=== PATIENT | male | born 1995 | race American Indian/Alaskan Native ===

== ENCOUNTER 2017-08-25 11:28 | Day surgery (SDC) | payer OTHER ==
[2017-08-25] MEDS ORDERED: ZOFRAN IV ONE (12:06)
[2017-08-25] MEDS ORDERED: NACL 0.9% 1000 ML 1,000 ML IV ONE (12:06)
[2017-08-25] MEDS ORDERED: MORPHINE IV ONE (12:06)
[2017-08-25] MEDS ORDERED: ZOFRAN ONE ×2 (12:08→14:37)
[2017-08-25] MEDS ORDERED: MORPHINE ONE (12:09)
--- NOTE | 2017-08-25 12:11 | Emergency Department Report ---
ED Male HPI - General Chief complaint: Urogenital-Male Stated complaint: TESTICLE SWOLLEN Time Seen by Provider: 08/25/17 12:02 Source: patient Mode of arrival: Ambulatory Limitations: No Limitations - History of Present Illness Initial comments: Patient is 21 years old male presented to the ER with left testicular pain that started all of a sudden after he went to the bathroom this morning around 8:00. Patient stated that his pain is 10 out of 10. Denied any recent trauma. Patient denied any penile discharge, no fever no nausea no vomiting. MD Complaint: testicle pain -: Sudden Location: left testicle Severity: severe Severity scale (0 -10): 10 Quality: sharp Consistency: constant Improves with: none Worsens with: movement denies: discharge, swelling, mass, rash, urinary retention, blood in urine, dysuria, fever, nausea/vomiting, incontinence - Related Data Home Medications Medication Instructions Recorded Confirmed Last Taken No Known Home Medications [No 07/29/16 07/29/16 Unknown Reported Home Medications] Allergies Allergy/AdvReac Type Severity Reaction Status Date / Time No Known Allergies Allergy Unverified 07/02/16 09:54 ED Review of Systems ROS: Stated complaint: TESTICLE SWOLLEN Other details as noted in HPI Comment: All other systems reviewed and negative Constitutional: denies: chills, fever Respiratory: denies: cough, shortness of breath, SOB with exertion Cardiovascular: denies: chest pain, palpitations, dyspnea on exertion Gastrointestinal: denies: abdominal pain, nausea, vomiting, diarrhea, constipation, hematemesis, hematochezia Genitourinary: denies: urgency Neurological: denies: headache, numbness, paresthesias ED Past Medical Hx - Past Medical History Previous Medical History?: No - Social History Smoking Status: Current Every Day Smoker Substance Use Type: Marijuana - Medications Home Medications: Home Medications Medication Instructions Recorded Confirmed Last Taken Type No Known Home Medications [No 07/29/16 07/29/16 Unknown History Reported Home Medications] ED Physical Exam - General Limitations: No Limitations General appearance: in distress - Head Head exam: Present: atraumatic, normocephalic - Eye Eye exam: Present: normal appearance - ENT ENT exam: Present: normal exam - Neck Neck exam: Present: normal inspection - Respiratory Respiratory exam: Present: normal lung sounds bilaterally - Cardiovascular Cardiovascular Exam: Present: regular rate, normal rhythm, normal heart sounds - GI/Abdominal GI/Abdominal exam: Present: soft, normal bowel sounds. Absent: distended, tenderness, guarding, rebound, rigid, organomegaly, mass, bruit, pulsatile mass , hernia - exam: Present: testicular tenderness (left side), scrotal swelling, circumcision. Absent: urethral discharge External exam: Present: swelling. Absent: erythema, lesions, lacerations, ecchymosis, bleeding - Extremities Exam Extremities exam: Present: normal inspection - Back Exam Back exam: Present: normal inspection. Absent: CVA tenderness (R), CVA tenderness (L) - Neurological Exam Neurological exam: Present: alert, oriented X3, CN II-XII intact, normal gait - Skin Skin exam: Present: warm, intact, normal color. Absent: cyanosis ED Course Vital Signs 08/25/17 11:37 Temperature 97.6 F Pulse Rate 80 Respiratory 26 H Rate Blood Pressure 134/98 O2 Sat by Pulse 97 Oximetry ED Medical Decision Making - Lab Data Result diagrams: 08/25/17 12:09 08/25/17 12:09 - Radiology Data Radiology results: report reviewed Referring Physician: VIVIENNE MCRAE Patient Name: SOURAV GOMEZ Date of : 1995 Sex: Male Report Date: 2017-08-25 Report Status: Finalized Findings [facility] [address] [place] [address] Ultrasound Report Signed Patient: SOURAV GOMEZ MR#: [id number] : 1995 Acct:[id number] Age/Sex: 21 / M ADM Date: 08/25/17 Loc: ED Attending Dr: Ordering Physician: VIVIENNE MCRAE Date of Service: 08/25/17 Procedure(s): US testicular doppler comp Accession Number(s): [id number] cc: VIVIENNE MCRAE ULTRASOUND TESTICULAR DOPPLER COMPLETE History: Severe scrotal pain. Technique: Trans-scrotal ultrasound with spectral doppler interrogation. Findings: The right testicle measures 3.5 x 2.7 x 2.9 cm. The left testicle measures 4.9 x 3.0 x 2.6 cm. There is no evidence for testicular cyst or mass. Both testicles are slightly heterogeneous. No calcifications. Spectral Doppler interrogation demonstrates normal arterial flow to the right testicle. There appears to be diminished flow to the left testicle on spectral Doppler imaging. There is better flow to the periphery of the left testicle than the central portions. The etiology of this is unclear. This may represent intermittent torsion? The epididymides are within normal limits. Small left hydrocele is noted. IMPRESSION: Arterial flow is identified to both testicles, however, flow appears to be diminished to the left testicle on spectral Doppler interrogation. Intermittent left testicular torsion? Please correlate with the patient's history. Small left hydrocele. Transcribed By: TTR Dictated By: IGNACIO BUTLER JR, MD Electronically Authenticated By: IGNACIO BUTLER JR, MD Signed Date/Time: 08/25/171313 DD/ 10 TD/TT: 08/25/171313 - Medical Decision Making Discussed with Dr. Patel from urology, he stated that he wanted patient nothing by mouth and he is taking the patient to the OR. Critical care attestation.: If time is entered above; I have spent that time in minutes in the direct care of this critically ill patient, excluding procedure time. ED Disposition Clinical Impression: Testicular torsion Disposition: DC-09 OP ADMIT IP TO THIS HOSP Is pt being admited?: Yes Condition: Stable
[2017-08-25 12:27] LABS: Basophils % (Auto) 0.5 % (0.0-1.8); Eosinophils % (Auto) 1.4 % (0.0-4.3); Hematocrit 42.4 % (35.5-45.6); Mean Corpuscular HGB Conc 33 % (32-34); Mean Corpuscular Hemoglobin 29 pg (28-32); Mean Corpuscular Volume 89 fl (84-94); Platelet Count 215 K/mm3 (140-440); Red Blood Count 4.78 M/mm3 (3.65-5.03); Red Cell Distribution Width 13.8 % (13.2-15.2); White Blood Count 6.6 K/mm3 (4.5-11.0)
[2017-08-25 12:42] LABS: Anion Gap 20 mmol/L; BUN/Creatinine Ratio 15; Blood Urea Nitrogen 12 mg/dL (9-20); Calcium 8.3 mg/dL (8.4-10.2); Carbon Dioxide 22 mmol/L (22-30); Chloride 102.8 mmol/L (98-107); Glucose 137 mg/dL (75-100); Potassium 3.6 mmol/L (3.6-5.0); Sodium 141 mmol/L (137-145)
--- NOTE | 2017-08-25 13:19 | Ultrasound Report ---
ULTRASOUND TESTICULAR DOPPLER COMPLETE History: Severe scrotal pain. Technique: Trans-scrotal ultrasound with spectral doppler interrogation. Findings: The right testicle measures 3.5 x 2.7 x 2.9 cm. The left testicle measures 4.9 x 3.0 x 2.6 cm. There is no evidence for testicular cyst or mass. Both testicles are slightly heterogeneous. No calcifications. Spectral Doppler interrogation demonstrates normal arterial flow to the right testicle. There appears to be diminished flow to the left testicle on spectral Doppler imaging. There is better flow to the periphery of the left testicle than the central portions. The etiology of this is unclear. This may represent intermittent torsion? The epididymides are within normal limits. Small left hydrocele is noted. IMPRESSION: Arterial flow is identified to both testicles, however, flow appears to be diminished to the left testicle on spectral Doppler interrogation. Intermittent left testicular torsion? Please correlate with the patient's history. Small left hydrocele.
[2017-08-25] MEDS ORDERED: DECADRON ONE (14:37)
[2017-08-25] MEDS ORDERED: QUELICIN ONE ×2 (14:37)
[2017-08-25] MEDS ORDERED: ZEMURON IV ONE (14:37)
[2017-08-25] MEDS ORDERED: SUBLIMAZE ONE (14:37)
[2017-08-25] MEDS ORDERED: DIPRIVAN 10 MG/ML IV ONE (14:37)
[2017-08-25] MEDS ORDERED: NEOSTIGMINE ONE (14:37)
[2017-08-25] MEDS ORDERED: ROBINUL ONE ×2 (14:37)
[2017-08-25] MEDS ORDERED: XYLOCAINE MPF 2% ONE (14:38)
--- NOTE | 2017-08-25 14:43 | Anesthesia Consultation ---
Anesthesia Consult and Med Hx Date of service: 08/25/17 - Airway Anesthetic Teeth Evaluation: Good ROM Head & Neck: Adequate Mental/Hyoid Distance: Adequate Mallampati Class: Class I Intubation Access Assessment: Good - Pulmonary Exam CTA: Yes - Cardiac Exam Cardiac Exam: RRR - Pre-Operative Health Status ASA Pre-Surgery Classification: ASA1, Emergency Proposed Anesthetic Plan: General - Other Systems Hx Obesity: Yes - Additional Comments Anesthesia Medical History Comments: healthy, no meds
--- NOTE | 2017-08-25 14:44 | Anesthesia Day of Surgery ---
Anesthesia Day of Surgery - Day of Surgery Patient Examined: Yes Patient H&P Reviewed: Yes Patient is NPO: Yes
[2017-08-25] MEDS ORDERED: NORCO 5/325 PO PRN (14:45)
[2017-08-25] MEDS ORDERED: MORPHINE IV PRN (14:45)
[2017-08-25] MEDS ORDERED: ZOFRAN IV PRN (14:45)
[2017-08-25] MEDS ORDERED: LACTATED RINGERS 1,000 ML IV SCH (15:00)
[2017-08-25] MEDS ORDERED: NEO SYNEPHRINE/NS Syringe(OR USE) IV ONE (15:00)
[2017-08-25] MEDS ORDERED: PEPCID IV NR (15:00)
[2017-08-25] MEDS ORDERED: ANCEF/STERILE WATER 2 GM/20 ML IV NR (15:00)
[2017-08-25] MEDS ORDERED: VERSED ONE (15:02)
[2017-08-25] MEDS ORDERED: DILAUDID ONE (15:50)
[2017-08-25] MEDS ORDERED: NACL 0.9% IR ONE (16:00)
[2017-08-25] MEDS ORDERED: TORADOL ONE (16:05)
--- NOTE | 2017-08-25 16:12 | Short Stay Summary ---
Short Stay Documentation Date of service: 08/25/17 Narrative H&P: Patient is 21 years old male presented to the ER with left testicular pain that started all of a sudden after he went to the bathroom this morning around 8:00. Patient stated that his pain is 10 out of 10------left testes. Denied any recent trauma. Patient denied any penile discharge, no fever no nausea no vomiting. - History Past Medical History: No medical history Past Surgical History: No surgical history Social history: no significant social history, single, lives with family - Allergies and Medications Current Medications: Allergies No Known Allergies Allergy (Unverified 07/02/16 09:54) Home Medications Medication Instructions Recorded Confirmed Last Taken Type No Known Home Medications [No 07/29/16 08/25/17 Unknown History Reported Home Medications] Active Medications Acetaminophen/Hydrocodone Bitart ([place] 5/325) 2 each PO ONCE PRN PRN Reason: Pain, Moderate (4-6) Cefazolin Sodium (Ancef/Sterile Water 2 Gm/20 Ml) 2 gm IV PREOP NR Stop: 08/25/17 23:00 Famotidine (Pepcid) 20 mg IV PREOP NR Stop: 08/25/17 23:00 Last Admin: 08/25/17 14:55 Dose: 20 mg Lactated Ringer's (Lactated Ringers) 1,000 mls @ 100 mls/hr IV DIRECT ERICA Morphine Sulfate (Morphine) 4 mg IV Q10MIN PRN PRN Reason: Pain , Severe (7-10) Ondansetron HCl (Zofran) 4 mg IV ONCE PRN PRN Reason: Nausea And Vomiting - Physical exam General appearance: no acute distress, mild distress, well-nourished Integumentary: no rash HEENT: Atraumatic, PERRLA, EOMI Lungs: Clear to auscultation Breasts: normal Heart: Regular rate, No murmurs Gastrointestinal: normal Rectal Exam: deferred Extremities: no ischemia, No edema Neurological: Normal gait - Brief post op/procedure progress note Date of procedure: 09/01/17 Pre-op diagnosis: left testes torsion Post-op diagnosis: same Procedure: scrotal exploration, bilat testes fixation Anesthesia: GETA Surgeon: SOPHIA TREJO Estimated blood loss: minimal Condition: stable - Hospital course Hospital course: marquita on chart, appt 2-3 weeks - Disposition Condition at discharge: Stable Disposition: DC-01 TO HOME OR SELFCARE Short Stay Discharge Plan Follow up with: SHUKRI JUNIOR MD [Primary Care Provider] - 3-5 Days
--- NOTE | 2017-08-25 18:50 | Operative Report ---
PREOPERATIVE DIAGNOSIS: Left testicular torsion. POSTOPERATIVE DIAGNOSIS: Left testicular torsion. PROCEDURE: Scrotal exploration, bilateral testicular fixation. SURGEON: Sunny Patel MD ANESTHESIA: General. ESTIMATED BLOOD LOSS: Minimal. FLUIDS: Crystalloid. COMPLICATIONS: No complications. INDICATIONS: This patient is a 21-year-old gentleman, presented to the Emergency Room with left testicular pain, which started approximately 8:00 a.m. today, presented to the Emergency Room. Scrotal ultrasound was consistent with decreased flow on the left side. The patient was still having significant pain. Discussed options with the patient and his mother, who agreed to proceed with surgical intervention. DESCRIPTION OF PROCEDURE: The patient was taken to the operative suite, placed in a supine position. After adequate general anesthesia, he was prepped and draped in a sterile fashion. This is at 3:00 p.m. Midline scrotal incision was made with the Bovie. Sharp dissection was taken down to the tunica vaginalis. It was opened on the left side, a dusky testicle and swollen could be appreciated. Serosanguineous fluid was evacuated. The testicle was detorsed, wrapped in warm saline lap on the right side. Inspection appeared to be a normal testicle. It was pexed in 3 planes using 2-0 Vicryl in an interrupted fashion. Reevaluation of the left testicle that was now appeared viable. It was placed back in the scrotum. It was also pexed with the tunica vaginalis in 3 planes using 2-0 Vicryl in interrupted fashion. Dartos layer was closed with 2-0 Vicryl in interrupted fashion. Skin was closed with 3-0 Vicryl in interrupted fashion. The patient tolerated the procedure well and was extubated and taken to recovery room. He will go home on [place] and follow up in the office. JOB# [id number] [facility]
[2017-08-25 20:39] VITALS: BP 129/76
== END 2017-08-25 18:35 | disposition home or self-care (01) ==
LOC: OR 11:28 → ED 11:28 → EDSTATUS 14:42 → OR 18:35
PROVIDERS: ATTEND Emergency Medicine
DX: N44.00 Torsion of testis, unspecified (principal); E66.9 Obesity, unspecified; Z68.37 Body mass index [BMI] 37.0-37.9, adult
CPT/HCPCS: 36415; 54600; 80048; 85025; 93975; J0690; J1100; J1170; J1885; J2250; J2270; J2370; J2405; J2704; J2710; J3010; J7030; J0330

== ENCOUNTER 2017-09-03 00:24 | Emergency (ER) | payer OTHER ==
[2017-09-03 01:45] VITALS: BP 129/78
[2017-09-03] MEDS ORDERED: TRIPLE ANTIBIOTIC TP ONE (05:03)
--- NOTE | 2017-09-03 05:03 | Emergency Department Report ---
ED Male HPI - General Chief complaint: Laceration/Recheck/Suture Stated complaint: INCISION CHECK Time Seen by Provider: 09/03/17 05:02 Source: patient, family Mode of arrival: Ambulatory Limitations: No Limitations - History of Present Illness Initial comments: Patient reports that he had surgery last on his testicles due to torsion. He said he woke up and his testicles are heard in and he went to the hospital and had to have surgery. He reported that the incision site is bleeding in a little. He reports that his left testicle is painful worse to walk and better with rest pain is 6 out of 10. Feels sore. No medication taken. Patient said that he was placed on hydrocodone by Dr. Patel was urologist/surgeon. Reports that he had his surgery done at this hospital last . Denies any fever or chills. Denies any penile drainage. Denies any urinary burning frequency or urgency. Denies any abdominal or back pain. MD Complaint: testicle pain, testicle swelling, other (reports suture coming apart) Onset/Timin -: days(s) Location: left testicle Radiation: none Severity: moderate Severity scale (0 -10): 6 Quality: other (sore) Consistency: intermittent Improves with: rest Worsens with: palpation, movement recent surgery swelling, dysuria, other (incision line opening with small amount of bleeding). denies: discharge, mass, rash, urinary retention, blood in urine, fever, nausea/vomiting, incontinence - Related Data Sexually active: Yes Previous Rx's Medication Instructions Recorded Last Taken Type Doxycycline [Vibramycin CAP] 100 mg PO Q12HR 10 Days #20 capsule 09/03/17 Unknown Rx Ibuprofen [Motrin] 600 mg PO Q8H PRN 5 Days #15 tablet 09/03/17 Unknown Rx Allergies Allergy/AdvReac Type Severity Reaction Status Date / Time No Known Allergies Allergy Unverified 07/02/16 09:54 ED Review of Systems ROS: Stated complaint: INCISION CHECK Other details as noted in HPI Comment: All other systems reviewed and negative Constitutional: no symptoms reported ENT: denies: throat pain, congestion Respiratory: no symptoms reported Cardiovascular: denies: chest pain, palpitations, dyspnea on exertion, orthopnea , edema, syncope, paroxysmal nocturnal dyspnea Genitourinary: testicular pain, testicular mass, other (suture line). denies: urgency Musculoskeletal: denies: back pain, joint swelling, arthralgia, myalgia Skin: other (the head). denies: rash Neurological: denies: headache, weakness ED Past Medical Hx - Past Medical History Previous Medical History?: No - Surgical History Past Surgical History?: Yes Additional Surgical History: testices - Family History Family history: hypertension - Social History Smoking Status: Never Smoker Substance Use Type: Marijuana - Medications Home Medications: Home Medications Medication Instructions Recorded Confirmed Last Taken Type Doxycycline [Vibramycin CAP] 100 mg PO Q12HR 10 Days #20 capsule 09/03/17 Unknown Rx Ibuprofen [Motrin] 600 mg PO Q8H PRN 5 Days #15 tablet 09/03/17 Unknown Rx ED Physical Exam - General Limitations: No Limitations General appearance: alert, in no apparent distress - Head Head exam: Present: atraumatic, normocephalic, normal inspection - Eye Eye exam: Present: normal appearance, PERRL, EOMI. Absent: periorbital swelling , periorbital tenderness Pupils: Present: normal accommodation - ENT ENT exam: Present: normal exam, normal orophraynx, mucous membranes moist - Neck Neck exam: Present: normal inspection, full ROM. Absent: tenderness, meningismus, lymphadenopathy, thyromegaly - Respiratory Respiratory exam: Present: normal lung sounds bilaterally. Absent: respiratory distress, wheezes, rales, rhonchi, stridor, chest wall tenderness, accessory muscle use, decreased breath sounds, prolonged expiratory - Cardiovascular Cardiovascular Exam: Present: regular rate, normal rhythm, normal heart sounds. Absent: systolic murmur, diastolic murmur - GI/Abdominal GI/Abdominal exam: Present: soft, normal bowel sounds. Absent: distended, tenderness, guarding, rebound, rigid, organomegaly, mass, bruit, pulsatile mass , hernia - exam: Present: testicular tenderness, scrotal swelling (last), other ( patient with incisional line from surgery on 08/25/2017 with superficial Dehis and scant amount of bleeding. No signs of infection to the incision line). Absent: normal inspection, urethral discharge, vertical testicular lie, circumcision External exam: Present: swelling, bleeding (scant bleeding in to incisional line status post surgery). Absent: normal external exam, erythema, lesions, lacerations, ecchymosis - Extremities Exam Extremities exam: Present: normal inspection, full ROM, normal capillary refill , other (no no clubbing, cyanosis or edema. +2 pulses to all extremities. No neurovascular compromise). Absent: tenderness, pedal edema, joint swelling, calf tenderness - Back Exam Back exam: Present: normal inspection, full ROM. Absent: tenderness, CVA tenderness (R), CVA tenderness (L), muscle spasm, paraspinal tenderness, vertebral tenderness, rash noted - Neurological Exam Neurological exam: Present: alert, oriented X3, normal gait - Psychiatric Psychiatric exam: Present: normal affect, normal mood - Skin Skin exam: Present: warm, dry, intact, normal color. Absent: rash ED Course Vital Signs 09/03/17 01:38 Temperature 98.6 F Pulse Rate 87 Blood Pressure 129/78 O2 Sat by Pulse 97 Oximetry Vital Signs 09/03/17 09/03/17 01:38 07:25 Temperature 98.6 F Pulse Rate 87 Respiratory 18 Rate Blood Pressure 129/78 O2 Sat by Pulse 97 Oximetry - Reevaluation(s) Reevaluation #1: 09/03/17 05:53 Pt stable. He was given Motrin 800 mg for pain. Affected area to scrotum cleansed with peroxide and normal saline and Neosporin ointment placed inside. He received Keflex 500 mg in emergency room. Patient is currently in ultrasound. Reevaluation #2: 09/03/17 07:[address] Patel who is the urologist that the patient's surgery and and he agrees with plan for patient to be in doxycycline and for him to increase his fluid intake and keep follow-up visit on 09/07/2017 - Consultations Consultation #1: 09/03/17 07:25 Dr Patel ED Medical Decision Making - Radiology Data Radiology results: report reviewed Ultrasound to testicle complete report there is left epididymitis and orchitis. Right testicle is normal. No evidence of torsion. Arterial blood flow normal spectral waveform. Flow velocity and color flow images. Venous blood flow: Normal spectral waveform and colorful images. No hydrocele. - Medical Decision Making ED course: Here status post testicular surgery to repair torsion. Patient is here reported that surgery was done by Dr. Patel who is a urologist at this hospital and incision line is having some bleeding in coming from side. He reports pain to his left testicular area. Ultrasound findings for left epididymitis and orchitis otherwise normal blood flow to both testicles arterial and venous. No hydrocele and right testicle is normal. No torsion is seen. This was communicated with patient. Patient physical exam feels that he has tenderness to his left testicle with mild swelling in an incision line with small superficial tear with skin amount of bleeding. No lesions or rash noted. No abnormality in penis. No drainage noted from penis. I discussed patient his ultrasound results I told him I'll put him on Motrin and he can continue his hydrocodone and also I'll put him on antibiotic and he is to keep his follow -up visit with Dr. Patel on 09/07/2017. He voiced understanding the discharge instruction and treatment plan and discharged home with his friend from ED in stable condition with prescription for doxycycline and Motrin. Critical care attestation.: If time is entered above; I have spent that time in minutes in the direct care of this critically ill patient, excluding procedure time. ED Disposition Clinical Impression: Orchitis and epididymitis, Testicular pain External incisional dehiscence Qualifiers: Encounter type: initial encounter Qualified Code(s): T81.31XA - Disruption of external operation (surgical) wound, not elsewhere classified, initial encounter Disposition: DC-01 TO HOME OR SELFCARE Is pt being admited?: No Does the pt Need Aspirin: No Condition: Stable Instructions: Epididymo-orchitis (ED), Testicle Pain (ED), Wound Dehiscence (ED ) Additional Instructions: Please keep the appointment with Dr. Alicia on 09/07/2017 for follow-up postop repair of testicular torsion Take antibiotic as prescribed. Testicles have good blood flow. Take Motrin to manage pain If you develop pus like drainage from incision site please return to the emergency room BETTYE and also call Dr. Alicia voicemail service. Prescriptions: Doxycycline [Vibramycin CAP] 100 mg PO Q12HR 10 Days #20 capsule Ibuprofen [Motrin] 600 mg PO Q8H PRN 5 Days #15 tablet PRN Reason: Pain Referrals: SOPHIA PATEL MD [Staff Physician] - 3-5 Days Forms: STI Treatment and Prevention, Work/School Release Form(ED)
[2017-09-03] MEDS ORDERED: MOTRIN PO ONE (05:04)
[2017-09-03] MEDS ORDERED: KEFLEX PO ONE (05:04)
[2017-09-03] MEDS ORDERED: HYDROGEN PEROXIDE ONE (05:11)
--- NOTE | 2017-09-03 06:18 | Ultrasound Report ---
FINAL REPORT PROCEDURE: US TESTICULAR DOPPLER COMP TECHNIQUE: Real-time veliz-scale and color flow Doppler sonography in multiple planes of the scrotum, testicles, and epididymes was performed. Velocity spectral waveform analysis Doppler imaging of the arterial inflow and venous outflow of the testicles was performed with image documentation. CPT 89667 and 68049 HISTORY: s/p surgicakl wound with drainage COMPARISON: No prior studies are available for comparison. FINDINGS: RIGHT TESTICLE: Size: 4.3 x 2.4 x 2.9 cm . Appearance: Normal size and echotexture . Arterial blood flow: Normal spectral waveforms, flow velocities and color flow images.. Venous blood flow: Normal spectral waveforms and color flow images. Right epididymis: Normal size and echotexture . Hydrocele: None . LEFT TESTICLE Size: 5.2 x 1.7 x 2.9 cm . Appearance: The heterogeneous echotexture. There is increased blood flow.. Arterial blood flow: Normal spectral waveforms, flow velocities and color flow images.. Venous blood flow: Normal spectral waveforms and color flow images. Leftepididymis: Enlarged, heterogeneous and hypervascular.. Hydrocele: None . IMPRESSION: There left epididymitis and orchitis. Right testicle is normal. There is no evidence of torsion.
== END 2017-09-03 08:03 | disposition home or self-care (01) ==
LOC: ED 00:24
DX: T81.31XA Disruption of external operation (surgical) wound, not elsewhere classified, initial encounter (principal); N45.2 Orchitis; N45.1 Epididymitis; F12.10 Cannabis abuse, uncomplicated
CPT/HCPCS: 93975; 99283; A6250

== ENCOUNTER 2017-09-13 10:19 | Emergency (ER) | payer OTHER ==
[2017-09-13 11:19] VITALS: BP 132/75
--- NOTE | 2017-09-13 13:51 | Emergency Department Report ---
- General Chief Complaint: Laceration/Recheck/Suture Stated Complaint: TESTICLE INCISION Time Seen by Provider: 09/13/17 13:46 Source: patient Mode of arrival: Ambulatory Limitations: No Limitations - History of Present Illness Initial Comments: pt is a 21 y/o aam who presents for wound check and suture removal for scrotal sutures placed [address] Patel Dx of Testicular torsion , pt states stuture came out 1 week no no bleeding no swelling no discharge , pt states was unsure when to follow up with Dr. Patel. Onset/Timin -: week(s) Location: genitals Patient Tetanus UTD: Yes Context: other (post op ) Associated Symptoms: none - Related Data Previous Rx's Medication Instructions Recorded Last Taken Type Doxycycline [Vibramycin CAP] 100 mg PO Q12HR 10 Days #20 capsule 09/03/17 Unknown Rx Ibuprofen [Motrin] 600 mg PO Q8H PRN 5 Days #15 tablet 09/03/17 Unknown Rx Clindamycin [Clindamycin CAP] 300 mg PO Q6H #40 capsule 09/13/17 Unknown Rx Allergies Allergy/AdvReac Type Severity Reaction Status Date / Time No Known Allergies Allergy Unverified 07/02/16 09:54 ED Review of Systems ROS: Stated complaint: TESTICLE INCISION Other details as noted in HPI Constitutional: denies: chills, fever Eyes: denies: eye pain, eye discharge, vision change ENT: denies: ear pain, throat pain Respiratory: denies: cough, shortness of breath, wheezing Cardiovascular: denies: chest pain, palpitations Endocrine: no symptoms reported Gastrointestinal: denies: abdominal pain, nausea, diarrhea Genitourinary: denies: urgency, dysuria Musculoskeletal: denies: back pain, joint swelling, arthralgia Skin: denies: rash, lesions Neurological: denies: headache, weakness, paresthesias Hematological/Lymphatic: denies: easy bleeding, easy bruising ED Past Medical Hx - Past Medical History Previous Medical History?: No - Surgical History Past Surgical History?: Yes Additional Surgical History: testicular torsion repair - Social History Smoking Status: Never Smoker Substance Use Type: None - Medications Home Medications: Home Medications Medication Instructions Recorded Confirmed Last Taken Type Doxycycline [Vibramycin CAP] 100 mg PO Q12HR 10 Days #20 capsule 09/03/17 Unknown Rx Ibuprofen [Motrin] 600 mg PO Q8H PRN 5 Days #15 tablet 09/03/17 Unknown Rx Clindamycin [Clindamycin CAP] 300 mg PO Q6H #40 capsule 09/13/17 Unknown Rx ED Physical Exam - General Limitations: No Limitations General appearance: alert, in no apparent distress - Head Head exam: Present: atraumatic, normocephalic - Eye Eye exam: Present: normal appearance - ENT ENT exam: Present: mucous membranes moist - Neck Neck exam: Present: normal inspection - Respiratory Respiratory exam: Present: normal lung sounds bilaterally. Absent: respiratory distress - Cardiovascular Cardiovascular Exam: Present: regular rate, normal rhythm. Absent: systolic murmur, diastolic murmur, rubs, gallop - GI/Abdominal GI/Abdominal exam: Present: soft, normal bowel sounds - Rectal Rectal exam: Present: deferred - exam: Present: other (scrotal incision dehiscence ). Absent: testicular tenderness, urethral discharge, scrotal swelling External exam: Present: other (post op surgical site dehiscence no discharge no bleeding no symptoms of infection , no pain, ). Absent: erythema, swelling, lesions, lacerations, ecchymosis, bleeding - Extremities Exam Extremities exam: Present: normal inspection, full ROM. Absent: tenderness - Back Exam Back exam: Present: normal inspection, full ROM. Absent: tenderness - Neurological Exam Neurological exam: Present: alert, oriented X3, normal gait - Psychiatric Psychiatric exam: Present: normal affect, normal mood - Skin Skin exam: Present: warm, dry, normal color, other (surgical sighte dehiscence as noted ). Absent: rash ED Course Vital Signs 09/13/17 11:13 Temperature 98.4 F Pulse Rate 75 Respiratory 16 Rate Blood Pressure 132/75 O2 Sat by Pulse 97 Oximetry ED Medical Decision Making - Medical Decision Making pt is a 21 y/o aam who presents for wound check and suture removal for scrotal sutures placed [address] Patel Dx of Testicular torsion , pt states stuture came out 1 week no no bleeding no swelling no discharge , pt states was unsure when to follow up with Dr. Patel. , wound dehiscence 1 week ago per patient , wound healing to 2ndary intention at this point no bleeding no discharge no pain no erythema there is no scrotal swelling no penile discharge no fever no chills, , plan: clindamyicn and follow up with Dr. Patel tomorrow pt will call today to setup appointment. Critical care attestation.: If time is entered above; I have spent that time in minutes in the direct care of this critically ill patient, excluding procedure time. ED Disposition Clinical Impression: Post-operative complication Qualifiers: Surgical complication system/body Area: skin Surgical complication type: other Qualified Code(s): L76.82 - Other postprocedural complications of skin and subcutaneous tissue Disposition: DC- TO HOME OR SELFCARE Is pt being admited?: No Does the pt Need Aspirin: No Condition: Good Instructions: Wound Dehiscence (ED) Additional Instructions: call Dr. Patel today to setup appoint for today or tomorrow Prescriptions: Clindamycin [Clindamycin CAP] 300 mg PO Q6H #40 capsule Referrals: SOPHIA PATEL MD [Staff Physician] - 3-5 Days Forms: Work/School Release Form(ED) Time of Disposition: 14:00
== END 2017-09-13 14:15 | disposition home or self-care (01) ==
LOC: ED 10:19
DX: L76.82 Other postprocedural complications of skin and subcutaneous tissue (principal)
CPT/HCPCS: 99281

== ENCOUNTER 2018-11-02 16:55 | Emergency (ER) | payer SELFPAY ==
--- NOTE | 2018-11-02 17:02 | Emergency Department Report ---
Blank Doc - Documentation Documentation: This is a 23-year-old male that presents with left axilla abscess x1 week. This initial assessment diagnostic orders/clinical plan/treatment(s) is/are subject to change based on patient's health status, clinical progression and re- assessment by fellow clinical providers in the ED. Further treatment and workup at subsequent clinical providers discretion. Patient/guardians urged not to elope from ED s their condition may be serious if not clinically assessed and managed. Initial orders include: 1-Patient sent to [facility] for further evaluation and treatment
[2018-11-02 17:03] VITALS: BP 154/86
[2018-11-02] MEDS ORDERED: KEFLEX PO ONE (18:26)
[2018-11-02] MEDS ORDERED: TORADOL IM ONE (18:27)
--- NOTE | 2018-11-02 18:29 | Emergency Department Report ---
Abscess Boil HPI - HPI Chief Complaint: Skin/Abscess/Foreign Body Stated Complaint: LT AXILLA HAS A PAINFUL KNOT Time Seen by Provider: 11/02/18 17:00 Duration: 5 Days Location: Upper Extremity Severity: Mild History: Yes Pain, No Fever, No Purulent Drainage, No Numbness, No Foreign Body, No Previous History, No Insect Bite HPI: Patient is a 23-year-old male who comes in with an abscess under his left arm. this is deep with no areas of flatulence. He states that he has not had abscess or hydradenitis before. PMH. NONE. RX. NONE Home Medications: Previous Rx's Medication Instructions Recorded Last Taken Type cephALEXin [Keflex] 500 mg PO Q12HR #20 cap 11/02/18 Unknown Rx traMADol [Ultram] 50 mg PO Q6HR PRN #10 tablet 11/02/18 Unknown Rx Allergies/Adverse Reactions: Allergies Allergy/AdvReac Type Severity Reaction Status Date / Time No Known Allergies Allergy Verified 11/02/18 16:56 ED Review of Systems ROS: Stated complaint: LT AXILLA HAS A PAINFUL KNOT Other details as noted in HPI Comment: All other systems reviewed and negative Constitutional: denies: chills, fever Eyes: denies: eye pain ENT: denies: ear pain Respiratory: denies: cough Cardiovascular: denies: palpitations Endocrine: denies: see HPI Gastrointestinal: denies: nausea Genitourinary: denies: urgency Musculoskeletal: denies: back pain Skin: as per HPI, lesions Neurological: denies: weakness Hematological/Lymphatic: denies: easy bleeding ED Past Medical Hx - Past Medical History Previous Medical History?: No - Surgical History Past Surgical History?: Yes Additional Surgical History: testicular torsion repair - Social History Smoking Status: Never Smoker Substance Use Type: None - Medications Home Medications: Home Medications Medication Instructions Recorded Confirmed Last Taken Type cephALEXin [Keflex] 500 mg PO Q12HR #20 cap 11/02/18 Unknown Rx traMADol [Ultram] 50 mg PO Q6HR PRN #10 tablet 11/02/18 Unknown Rx ED Abscess Boil Physical Exam - Exam General: Vital signs noted. No distress. Alert and acting appropriately. Size: 3 cm Exam: Yes Tenderness, Yes Normal Neurologic Exam, Yes Normal Circulation, No Fluctuance, No Surrounding Cellulites/Erythema, No Lymphangitis, No Crepitation, No Heart Murmur I & D Note - I & D Note I & D Note: NO AREA TO I/D. PROVIDER FEELS IF I I/D IT WILL BE THROUGH TISSUE THAT IS INFLAMMED - NOT A FORMED ABSCESS. ED Course Vital Signs 11/02/18 17:02 Temperature 98.1 F Pulse Rate 86 Respiratory 16 Rate Blood Pressure 154/86 O2 Sat by Pulse 99 Oximetry Critical care attestation.: If time is entered above; I have spent that time in minutes in the direct care of this critically ill patient, excluding procedure time. ED Medical Decision Making - Medical Decision Making NO AREA WHERE WE COULD I/D AREA IS FIRM WO AREA SOFT TO I/D. WILL TX WITH ANTIBIOTICS AND HAVE FOLLOW UP WITH PCP. PT IS AFEBRILE HE IS NON TOXIC PT IS AMBULATORY ED Disposition Clinical Impression: Abscess, Cellulitis Disposition: DC-01 TO HOME OR SELFCARE Is pt being admited?: No Does the pt Need Aspirin: No Condition: Stable Instructions: Abscess (ED) Additional Instructions: MEDS ORDERED MOTRIN OR TYLENOL FOR MILD PAIN FOLLOW UP PCP REFERRAL BELOW SOAK IN WARM BATHS OF EPSOM SALTS Prescriptions: cephALEXin [Keflex] 500 mg PO Q12HR #20 cap traMADol [Ultram] 50 mg PO Q6HR PRN #10 tablet PRN Reason: Pain Referrals: [facility] [Outside] - 3-5 Days Time of Disposition: 18:27
== END 2018-11-02 19:45 | disposition home or self-care (01) ==
LOC: ED 16:55
DX: L02.414 Cutaneous abscess of left upper limb (principal); L03.114 Cellulitis of left upper limb
CPT/HCPCS: 96372; 99282; J1885